=== PATIENT | male | born 1985 | race African-American/Black ===

== ENCOUNTER 2024-05-23 21:41 | Emergency (ER) | payer SELFPAY ==
[2024-05-23 21:38] VITALS: BP 110/56; PULSE 62; RESP 12; TEMP 36.8; O2SAT 99
[2024-05-23 21:46] VITALS: PULSE 62
[2024-05-23 21:47] VITALS: RESP 17; O2SAT 99
--- NOTE | 2024-05-23 22:44 | ED.GENADULT ---
HPI - General Adult General Chief complaint: Unspecified Stated complaint: unresponsive Time Seen by Provider: 05/23/24 22:15 Source: patient Limitations: no limitations History of Present Illness HPI narrative: Patient is a 38-year-old male presents to the emergency department by EMS from [facility]. EMS states that the patient [place] and only responsive to pain and had pinpoint pupils and EMS gave Narcan intranasally. Medium a stated the patient admitted to ETOH use but denies anything else. On my questioning patient denies any current complaints or concerns the patient did not know why he was brought to the emergency department today. Patient is requesting something to eat and drink. Patient denies any recent injuries, recent illness, chest pain, difficulty breathing, cough, fever, numbness, weakness. Patient denies any illicit drug use. Patient admits to regular marijuana use. Review of Systems Review of Systems: A 10 system review of systems was completed on the patient and is negative except for what is stated in the HPI. Nursing and ancillary documentation was reviewed. PMFSH Comments At time of signature, I have reviewed and agree with nursing past medical, surgical, social and family history unless otherwise noted. Please see the nursing chart for further information. There is no relevant family history pertinent to the presenting complaint. Exam Narrative: CONST: No acute distress. Well nourished. Appears mildly intoxicated. HENMT: Head is normocephalic and atraumatic. Moist mucous membranes. No posterior oropharynx erythema. EYES: No conjunctival icterus, injection, or pallor. PERRL. NECK: No meningeal signs. RESP: Able to speak in full sentences. Normal respiratory effort. CTAB. CARDIO: Regular rate. Regular rhythm. 2+ DP and radial pulses bilaterally. GI: Nondistended. No tenderness to palpation. Soft. : No CVA tenderness to palpation. SKIN: No rashes or lesions noted on exposed skin. NEURO: Oriented x3. Moves all extremities. EXTREM/MSK/BACK: No pedal edema. PSYCH: Normal affect. Course Vital Signs Vital signs: Vital Signs Temperature 98.3 F 05/23/24 21:38 Pulse Rate 62 05/23/24 21:38 Respiratory Rate 12 05/23/24 21:38 Blood Pressure 110/56 L 05/23/24 21:38 Pulse Oximetry 99 05/23/24 21:38 Oxygen Delivery Room Air 05/23/24 21:38 Temperature 98.3 F 05/23/24 21:38 Pulse Rate 62 05/23/24 21:46 Respiratory Rate 17 05/23/24 21:47 Blood Pressure 110/56 L 05/23/24 21:38 Pulse Oximetry 99 05/23/24 21:47 Oxygen Delivery Room Air 05/23/24 21:38 Medical Decision Making MDM Narrative Medical decision making narrative: Patient presents with the above complaint. Initial vitals are remarkable for no significant abnormalities. Physical examination as noted above. Plan discussed: EKG, provide patient with food and beverage, monitor. Patient denies any illicit drug use. Patient admits to alcohol use. Patient appears mildly intoxicated, is speaking in full sentences with clear and fluent speech and is alert and oriented. The patient is able to ambulate with steady gait will discharge with PCP follow-up. Patient ambulating with a steady gait, requesting to be discharged. Patient is clinically sober. Patient discharged in stable condition. Vital Signs Vital Signs: Vital Signs Temperature 98.3 F 05/23/24 21:38 Pulse Rate 62 05/23/24 21:38 Respiratory Rate 12 05/23/24 21:38 Blood Pressure 110/56 L 05/23/24 21:38 Pulse Oximetry 99 05/23/24 21:38 Oxygen Delivery Room Air 05/23/24 21:38 Temperature 98.3 F 05/23/24 21:38 Pulse Rate 62 05/23/24 21:46 Respiratory Rate 17 05/23/24 21:47 Blood Pressure 110/56 L 05/23/24 21:38 Pulse Oximetry 99 05/23/24 21:47 Oxygen Delivery Room Air 05/23/24 21:38 ECG Data EKG #1: Attestation: I personally reviewed an
--- NOTE | 2024-05-23 22:45 | ECG_ITS ---
Test Date: 2024-05-23 23:17:19 Measurements Intervals [place] Rate: 53 P: 51 SD: 190 QRS: 68 QRSD: 102 T: 74 QT: 422 QTc: 396 Interpretive Statements SINUS BRADYCARDIA POSSIBLE LEFT ATRIAL ENLARGEMENT NONSPECIFIC T-WAVE ABNORMALITY- LAT/HIGH LAT LEADS BASELINE ARTIFACT- I, II, III, AVR, AVL, V2-V3 BORDERLINE ECG No previous ECG available for comparison Electronically Signed On 05-24-2024 07:35:33 CDT by Aly Landaverde D.O.
== END 2024-05-23 23:43 | disposition home or self-care (01) ==
PROVIDERS: Emergency Provider Student in an Organized Health Care Education/Training Program
DX: F10.929 Alcohol use, unspecified with intoxication, unspecified (principal); Y90.9 Presence of alcohol in blood, level not specified
CPT/HCPCS: 93005; 99284; J2310; J7030